=== PATIENT | male | born 1975 | race African-American/Black ===

== ENCOUNTER 2019-05-08 07:10 | Inpatient (IN) | payer MEDICAID ==
[2019-05-08] VITALS (15 sets, daily range): BP systolic 127–172; BP diastolic 78–125
[~2019-05-08] VITALS: Ht 182.9 cm; Wt 61.8 kg
[2019-05-08 08:10] LABS: BASOPHILS % 0.5 % (0.0-2.0); EOSINOPHILS % 0.1 % (0.0-5.0); HEMATOCRIT. 44.7 % (42.0-52.0); HEMOGLOBIN. 14.7 g/dL (14.0-18.0); MEAN CORPUSCULAR HEMOGLOBIN 28.2 pg (28.0-32.0); MEAN CORPUSCULAR VOLUME 85.7 fL (80.0-94.0); MEAN PLATELET VOLUME 8.8 fl (7.4-10.4); MONOCYTES % 8.5 % (2.0-8.0); NEUTROPHILS % 79.9 % (40.0-76.0); PLATELET 223 x1000/uL (130-400); RED BLOOD CELL COUNT 5.21 mill/uL (4.7-6.1); RED CELL DISTRIBUTION WIDTH 16.1 % (11.6-14.6)
[2019-05-08 08:18] LABS: CHLORIDE 108 mEq/L (98-107)
[2019-05-08 08:22] LABS: ETHANOL BLOOD < 10 mg/dL
[2019-05-08] MEDS ORDERED: ALBUTEROL (0.083%) 2.5MG/3ML NEB HHN STA (08:24)
[2019-05-08] MEDS ORDERED: IPRATROPIUM BROMIDE (0.02%) 0.5MG/2.5ML NEB HHN STA (08:24)
[2019-05-08] MEDS ORDERED: ENALAPRIL 2.5MG TABLET PO ONE (08:30)
[2019-05-08] MEDS ORDERED: IPRATROPIUM/ALBUTEROL 0.5-3(2.5)MG/3ML NEB ONE (08:35)
[2019-05-08] MEDS ORDERED: FUROSEMIDE 20MG/2ML VIAL IVP ONE (08:45)
[2019-05-08] MEDS ORDERED: ASPIRIN 81MG TABLET PO ONE (08:45)
[2019-05-08 08:55] LABS: *BARBITURATES SCREEN URINE NEGATIVE (NEGATIVE)
[2019-05-08 08:56] LABS: *AMPHETAMINES SCREEN URINE NEGATIVE (NEGATIVE); *BENZODIAZEPINES SCREEN URINE NEGATIVE (NEGATIVE); *COCAINE SCREEN URINE NEGATIVE (NEGATIVE); METHADONE URINE SCREEN NEGATIVE (NEGATIVE); OPIATES URINE SCREEN NEGATIVE (NEGATIVE)
[2019-05-08 08:57] LABS: CANNABINOID URINE SCREEN NEGATIVE (NEGATIVE); PHENCYCLIDINE URINE SCREEN NEGATIVE (NEGATIVE)
[2019-05-08 09:34] LABS: INR 1.1; PARTIAL THROMBOPLASTIN TIME 28.7 sec (23.4-31.0); PROTHROMBIN TIME 11.3 sec (9.6-11.0)
[2019-05-08] MEDS ORDERED: ENOXAPARIN 100MG/ML SYR SUBCUT ONE (09:45)
[2019-05-08] MEDS ORDERED: AMLODIPINE 5MG TABLET PO SCH (11:00)
[2019-05-08] MEDS ORDERED: SODIUM CHLORIDE 0.45% 1,000 ML IV ONE (11:00)
[2019-05-08] MEDS ORDERED: NITROGLYCERIN OINT 1GM/INCH UDPKT TD SCH (11:00)
[2019-05-08] MEDS ORDERED: ACETAMINOPHEN 325MG TABLET PO PRN (14:45)
[2019-05-08] MEDS ORDERED: CLONIDINE 0.1MG TABLET PO PRN (14:45)
[2019-05-08] MEDS ORDERED: ONDANSETRON HCL 4MG/2ML INJ IV PRN (14:45)
[2019-05-08 15:12] LABS: CHLORIDE 109 mEq/L (98-107)
[2019-05-08] MEDS ORDERED: FUROSEMIDE 100MG/10ML VIAL IVP NR (15:15)
[2019-05-08 15:42] LABS: HEPATITIS B SURFACE ANTIGEN NEGATIVE
[2019-05-08] MEDS ORDERED: ARIP15TA2 PO (16:10)
[2019-05-08 16:12] LABS: HEPATITIS A AB IGM NEGATIVE (NEGATIVE)
[2019-05-08] MEDS: LOSARTAN POTASSIUM 25 MG TABLET PO SCH (18:19)
[2019-05-08] MEDS: NITROGLYCERIN OINT 1GM/INCH UDPKT TD SCH ×2 (18:21→23:45)
[2019-05-08] MEDS ORDERED: ARIPIPRAZOLE 5MG TABLET PO SCH (19:45)
[2019-05-08] MEDS ORDERED: ENOXAPARIN 80MG/0.8ML SYR SUBCUT SCH (21:00)
[2019-05-09] VITALS (12 sets, daily range): BP systolic 118–148; BP diastolic 69–98
[2019-05-09] MEDS ORDERED: FUROSEMIDE 40MG/4ML VIAL IVP SCH (03:00)
[2019-05-09] MEDS: FUROSEMIDE 40MG/4ML VIAL IVP SCH ×2 (06:07→17:47)
[2019-05-09] MEDS: NITROGLYCERIN OINT 1GM/INCH UDPKT TD SCH ×3 (06:07→17:47)
[2019-05-09 08:27] LABS: BASOPHILS % 0.4 % (0.0-2.0); EOSINOPHILS % 0.4 % (0.0-5.0); HEMATOCRIT. 43.1 % (42.0-52.0); HEMOGLOBIN. 14.1 g/dL (14.0-18.0); LYMPHOCYTES % 16.9 % (20.0-50.0); MEAN CORPUSCULAR HEMOGLOBIN 28.1 pg (28.0-32.0); MEAN CORPUSCULAR VOLUME 85.6 fL (80.0-94.0); MEAN PLATELET VOLUME 8.9 fl (7.4-10.4); MONOCYTES % 7.7 % (2.0-8.0); NEUTROPHILS % 74.6 % (40.0-76.0); PLATELET 222 x1000/uL (130-400); RED BLOOD CELL COUNT 5.04 mill/uL (4.7-6.1); RED CELL DISTRIBUTION WIDTH 16.1 % (11.6-14.6)
[2019-05-09] MEDS: LOSARTAN POTASSIUM 25 MG TABLET PO SCH ×2 (08:39→22:05)
[2019-05-09] MEDS: ASPIRIN 81MG EC TABLET PO SCH (08:39)
[2019-05-09] MEDS: ENOXAPARIN 80MG/0.8ML SYR SUBCUT SCH ×2 (08:40→21:34)
[2019-05-09] MEDS: AMLODIPINE 5MG TABLET PO SCH ×2 (08:47→10:08)
[2019-05-09] MEDS ORDERED: ASPIRIN 81MG TABLET PO SCH (09:00)
[2019-05-09] MEDS ORDERED: ENOXAPARIN 100MG/ML SYR SUBCUT SCH (09:00)
[2019-05-09 10:04] LABS: CHLORIDE 106 mEq/L (98-107)
[2019-05-09 10:14] LABS: CREATINE KINASE 499 IU/L (39-308); CREATINE KINASE MB FRACTION 2.3 ng/mL (0.5-3.6)
[2019-05-09] MEDS ORDERED: METHYLPREDNISOLONE SOD SUCC 125 MG/2 ML VIAL IV NR (15:21)
[2019-05-09] MEDS: IPRATROPIUM/ALBUTEROL 0.5-3(2.5)MG/3ML NEB HHN SCH ×2 (15:31→21:20)
[2019-05-09] MEDS ORDERED: ARIPIPRAZOLE 5MG TABLET PO SCH (21:00)
[2019-05-09] MEDS: METHYLPREDNISOLONE SOD SUCC 40 MG/ML VIAL IV SCH (22:05)
[2019-05-10] VITALS (31 sets, daily range): BP systolic 102–156; BP diastolic 71–107
[2019-05-10] MEDS: NITROGLYCERIN OINT 1GM/INCH UDPKT TD SCH ×3 (00:36→12:00)
[2019-05-10] MEDS: IPRATROPIUM/ALBUTEROL 0.5-3(2.5)MG/3ML NEB HHN SCH ×4 (01:12→13:51)
[2019-05-10] MEDS: FUROSEMIDE 40MG/4ML VIAL IVP SCH (05:24)
[2019-05-10] MEDS: METHYLPREDNISOLONE SOD SUCC 40 MG/ML VIAL IV SCH (06:00)
[2019-05-10 07:01] LABS: BASOPHILS % 0.2 % (0.0-2.0); HEMATOCRIT. 44.4 % (42.0-52.0); HEMOGLOBIN. 14.5 g/dL (14.0-18.0); LYMPHOCYTES % 12.6 % (20.0-50.0); MEAN CORPUSCULAR HEMOGLOBIN 28.1 pg (28.0-32.0); MEAN CORPUSCULAR VOLUME 85.7 fL (80.0-94.0); MEAN PLATELET VOLUME 9.1 fl (7.4-10.4); MONOCYTES % 3.8 % (2.0-8.0); NEUTROPHILS % 83.4 % (40.0-76.0); PLATELET 234 x1000/uL (130-400); RED BLOOD CELL COUNT 5.18 mill/uL (4.7-6.1); RED CELL DISTRIBUTION WIDTH 15.7 % (11.6-14.6)
[2019-05-10 07:05] LABS: CHLORIDE 105 mEq/L (98-107)
[2019-05-10] MEDS: LOSARTAN POTASSIUM 25 MG TABLET PO SCH (09:26)
[2019-05-10] MEDS: ASPIRIN 81MG EC TABLET PO SCH (09:26)
[2019-05-10] MEDS: AMLODIPINE 5MG TABLET PO SCH (09:26)
[2019-05-10] MEDS ORDERED: BLOOD SUGAR DIAGNOSTIC STRIP TEST SCH (11:50)
[2019-05-10 11:58] LABS: BG BASE EXCESS 2.9 mmol/L (-2.0-2.0); BG CARBOXYHEMOGLOBIN 1.5 % (0.5-1.5); BG DEOXYHEMOGLOBIN 7.8 % (0.0-5.0); BG FRACTION INSPIRED OXYGEN 28; BG HCO3 ACT 26.4 mmol/L (22.0-26.0); BG METHEMOGLOBIN 0.5 % (0.0-1.5); BG OXYHEMOGLOBIN 90.2 % (94.0-97.0); BG PH 7.471 (7.350-7.450); BG PO2 63.7 mmHg (75.0-100.0); BG SAMPLE SITE RIGHT RADIAL; BG TOTAL HEMOGLOBIN 15.9 g/dL (12.0-18.0); BG VENT MODE NASAL CANNULA
[2019-05-10 12:41] LABS: PROTHROMBIN TIME 10.8 sec (9.6-11.0)
[2019-05-10] MEDS ORDERED: ALTEPLASE 100MG/VIAL IV ONE ×2 (12:57→14:15)
[2019-05-10] MEDS ORDERED: *NO ASPIRIN X 24 HOURS XX SCH (13:15)
== END 2019-05-10 15:15 | disposition short-term general hospital (02) | DRG 190 ==
LOC: ER 07:10 → 3WST 09:07 → EDBEDREQ 09:11 → EDBEDREQTM 09:11 → EDBEDREQSVC 09:11 → ENRESERV 10:14 → 3WST 16:57 → MICUNO 05-10 11:45
PROVIDERS: ADMIT Internal Medicine; ATTEND Internal Medicine
DX: I21.4 Non-ST elevation (NSTEMI) myocardial infarction (principal); I50.23 Acute on chronic systolic (congestive) heart failure; G93.40 Encephalopathy, unspecified; N17.9 Acute kidney failure, unspecified; I27.20 Pulmonary hypertension, unspecified; F10.10 Alcohol abuse, uncomplicated; J44.1 Chronic obstructive pulmonary disease with (acute) exacerbation; F20.9 Schizophrenia, unspecified; R09.02 Hypoxemia; E87.6 Hypokalemia; F14.10 Cocaine abuse, uncomplicated; R74.0 Nonspecific elevation of levels of transaminase and lactic acid dehydrogenase [LDH]; H53.47 Heteronymous bilateral field defects; I08.1 Rheumatic disorders of both mitral and tricuspid valves; I13.0 Hypertensive heart and chronic kidney disease with heart failure and stage 1 through stage 4 chronic kidney disease, or unspecified chronic kidney disease; N18.9 Chronic kidney disease, unspecified; I25.2 Old myocardial infarction; Z82.3 Family history of stroke; Z87.891 Personal history of nicotine dependence; Z82.49 Family history of ischemic heart disease and other diseases of the circulatory system
CPT/HCPCS: 36415; 36600; 70496; 71045; 76700; 78582; 80048; 80305; 80320; 82375; 82550; 82553; 82805; 82962; 83880; 84484; 85379; 85384; 86705; 86709; 86803; 87340; 93005; 93306; 93970; 94640; 99285; A9558; J1650; J1940; J2920; J2930; J2997; J7611; J7620; G0480